=== PATIENT | female | born 2000 | race American Indian/Alaskan Native ===

== ENCOUNTER 2021-04-05 18:59 | Emergency (ER) | payer OTHER ==
[2021-04-05] MEDS ORDERED: ONDANSETRON ODT 4 MG TABLET TL STA (19:33)
[2021-04-05] MEDS ORDERED: BUTALB/ACETAM/CAFF 50/325/40MG TABLET PO STA (19:33)
--- NOTE | 2021-04-05 20:05 | ED Physician Documentation ---
History of Present Illness - Stated complaint Stated Complaint: MIGRAINE - Chief complaint Chief Complaint: Neuro - History obtained from History obtained from: Patient, Family - History of Present Illness Timing: Today Pain level max: 8 Pain level now: 8 - Additonal information Additional information: 20 year old female with her usual migraine headache. Gradual onset No fevers. No chills. No trauma. Worse with light and sound. Better with closing her eyes. Denies any possibility of . No vomiting. Occasional nausea. 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 Medications Home Medications: Ambulatory Orders Medication Instructions Recorded Confirmed Butalb/Acetaminophen/Caffeine 1 cap PO Q6H PRN #10 cap 04/05/21 [Fioricet 50-300-40 mg Capsule] - Allergies Allergies/Adverse Reactions: Allergies Allergy/AdvReac Type Severity Reaction Status Date / Time No Known Drug Allergies Allergy Verified 04/05/21 19:16 - Social History Does the pt smoke?: No Smoking Status: Never smoker Does the pt drink ETOH?: No Does the pt have substance abuse?: No - Immunizations Immunizations are current?: Yes - POLST Patient has POLST: No PD ED PE NORMAL - Vitals Vital signs reviewed: Yes - General General: Alert and oriented X 3, No acute distress - HEENT HEENT: PERRL, EOMI, Moist mucous membranes - Neck Neck: Supple, no meningeal sign - Cardiac Cardiac: RRR - Respiratory Respiratory: No respiratory distress, Clear bilaterally - Abdomen Abdomen: Normal bowel sounds, Soft, Non tender, Non distended - Derm Derm: Warm and dry - Extremities Extremities: No edema, No calf tenderness / cord - Neuro Neuro: Alert and oriented X 3, 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 We will continue supportive care and have her follow-up with her doctor. No evidence of subarachnoid hemorrhage, tumor, mass. Patient counseled regarding signs and symptoms for which I believe and urgent re-evaluation would be necessary. Patient with good understanding of and agreement to plan and is comfortable going home at this time This document was made in part using voice recognition software. While efforts are made to proofread this document, sound alike and grammatical errors may occur. Departure - Departure Disposition: 01 Home, Self Care Clinical Impression: Migraine Qualifiers: Migraine type: unspecified Status migrainosus presence: without status migrainosus Intractability: not intractable Qualified Code(s): G43.909 - Migraine, unspecified, not intractable, without status migrainosus Condition: Good Instructions: ED Headache Migraine Follow-Up: your,doctor in 1 week [Other] Prescriptions: Butalb/Acetaminophen/Caffeine [Fioricet 50-300-40 mg Capsule] 1 cap PO Q6H PRN #10 cap PRN Reason: headache Comments: You can use the Fioricet for any further headaches. Follow-up with your doctor for further care. Return if you worsen. Discharge Date/Time: 04/05/21 20:46
[2021-04-05 20:19] VITALS: BP 118/93
== END 2021-04-05 20:46 | disposition home or self-care (01) ==
LOC: ED 18:59
DX: G43.909 Migraine, unspecified, not intractable, without status migrainosus (principal)
CPT/HCPCS: 99282; 99283; A9270; Q0162

== ENCOUNTER 2021-05-26 18:11 | Emergency (ER) | payer OTHER ==
[2021-05-26 18:25] VITALS: BP 131/88
[2021-05-26 18:52] LABS: BILIRUBIN,URINE NEGATIVE (NEGATIVE); GLUCOSE, URINE (UA) NEGATIVE (NEGATIVE); KETONES,URINE (UA) NEGATIVE (NEGATIVE); LEUKOCYTE ESTERASE, URINE SMALL (NEGATIVE); NITRITE,URINE NEGATIVE (NEGATIVE); OCCULT BLOOD,URINE LARGE (NEGATIVE); PH,URINE 7.5 PH (5.0-7.5); PROTEIN,URINE 100 mg/dL (NEGATIVE); UROBILINOGEN,URINE 0.2 (NORMAL) E.U./dL (NORMAL)
[2021-05-26 18:55] LABS: CLARITY,URINE HAZY (CLEAR); HCG UR QUAL NEGATIVE
--- NOTE | 2021-05-26 18:57 | ED Physician Documentation ---
History of Present Illness - Stated complaint Stated Complaint: ABD PX/FEMALE - Chief complaint Chief Complaint: Abd Pain - Additonal information Additional information: 20-year-old female presents the emergency department for evaluation of 2 days of dysuria urgency and frequency. This did follow very recent sexual intercourse. She suspected she had a UTI therefore she increased her fluid intake and but Pyridium [id number]. After the first dose of Pyridium her symptoms improved until this a.m. when she had lower abdominal pain and vomiting. No fevers. No history of pyelonephritis. No history of surgery on the abdomen. She is not a diabetic and takes no prescribed medications. Doubts IUD in place. 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 Medications Home Medications: Ambulatory Orders Medication Instructions Recorded Confirmed Butalb/Acetaminophen/Caffeine 1 cap PO Q6H PRN #10 cap 04/05/21 [Fioricet 50-300-40 mg Capsule] cephALEXin [Keflex] 500 mg PO BID #14 05/26/21 - Allergies Allergies/Adverse Reactions: Allergies Allergy/AdvReac Type Severity Reaction Status Date / Time No Known Drug Allergies Allergy Verified 04/05/21 19:16 - Social History Does the pt smoke?: No Smoking Status: Never smoker Does the pt drink ETOH?: No Does the pt have substance abuse?: No - Immunizations Immunizations are current?: Yes - POLST Patient has POLST: No PD ED PE EXPANDED - General General: Alert, No acute distress, Well developed/nourished - Cardiac Cardiac: Regular Rate, Radial strong equal, Cap refill < 2 sec - Respiratory Respiratory: Clear to ausultation candelaria. No: Distress, Labored - Abdomen Abdomen: Normal Bowel sounds, Tender to palpation, Suprapubic (Mild suprapubic t enderness to palpation without guarding or rebound. No flank pain no CVA tenderness.) - Back Back: Normal exam. No: CVA TTP right, CVA TTP left - Derm Derm: Normal color, Warm and dry. No: Rash - Neuro Neuro: Alert and Oriented X 3, CNII-XII intact - GCS Eye Opening: Spontaneous Motor: Obeys Commands Verbal: Oriented Total: 15 Results - Vitals Vitals: Vital Signs - 24 hr 05/26/21 18:21 Temperature 37.3 C Heart Rate 90 Respiratory 97 H Rate Blood Pressure 131/88 H O2 Saturation 97 Oxygen O2 Source Room air - Labs Labs: Laboratory Tests 05/26/21 05/26/21 18:31 18:31 Urine Color YELLOW Urine Clarity HAZY Urine pH 7.5 Ur Specific [place] 1.020 Urine Protein 100 H Urine Glucose (UA) NEGATIVE Urine Ketones NEGATIVE Urine Occult Blood LARGE H Urine Nitrite NEGATIVE Urine Bilirubin NEGATIVE Urine Urobilinogen 0.2 (NORMAL) Ur Leukocyte Esterase SMALL H Urine RBC TNTC H Urine WBC >25 H Urine WBC Clumps PRESENT Ur Squamous Epith Cells MANY Squamous H Urine Bacteria Many H Ur Microscopic Review INDICATED Urine Culture Comments NOT INDICATED Urine HCG, Qual NEGATIVE PD MEDICAL DECISION MAKING - ED course Complexity details: reviewed results, re-evaluated patient, d/w patient ED course: 20-year-old female presents emergency department for evaluation of 2 days acute dysuria and now lower abdominal pain. She reported vomiting but has had no feve rs. On exam mild suprapubic tenderness was elicited without flank or CVA tenderness. Urine is consistent with acute cystitis. Patient was given first dose of Keflex here in the ER and will be discharged with a 7-day prescription. Culture is pending. Emergent return precautions were discussed for concerns of a sending infections or pyelonephritis. Departure - Departure Disposition: 01 Home, Self Care Clinical Impression: Acute cystitis Qualifiers: Hematuria presence: with hematuria Qualified Code(s): N30.01 - Acute cystitis with hematuria Condition: Stable Record reviewed to determine appropriate education?: Yes Instructions: ED Infec Bladder Female Ch Prescriptions: cephALEXin [Keflex] 500 mg PO BID #14 Comments: You are seen in the ER today for urinary symptoms. Your urine is consistent with a urinary tract infection. Please fill the prescription for the cephalexin and begin taking twice daily as directed. Your first dose of medication was given tonight here in the ER. Stay well-hydrated. I would expect your symptoms to be markedly better in the next 24 hours with the antibiotics. If not improving, you develop fevers or have uncontrolled vomiting please return to the ER for a second evaluation.
[2021-05-26 19:09] LABS: BACTERIA,URINE Many /HPF (None Seen); RBC,URINE TNTC /HPF (0-5); SQUAMOUS EPITHELIAL CELL,UR MANY Squamous (<= Few); WBC CLUMPS,URINE PRESENT; WBC,URINE >25 /HPF (0-5)
[2021-05-26] MEDS ORDERED: cephALEXin 250 MG CAPSULE PO STA (19:26)
== END 2021-05-26 19:51 | disposition home or self-care (01) ==
LOC: ED 18:11
DX: N30.01 Acute cystitis with hematuria (principal); Z97.5 Presence of (intrauterine) contraceptive device
CPT/HCPCS: 81001; 81025; 99283; 99284; A9270; 81003; 87086